=== PATIENT | female | born 1960 | race Caucasian/White ===

== ENCOUNTER 2020-02-11 20:00 | Emergency (ER) | payer OTHER, SELFPAY ==
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
[2020-02-11 20:05] VITALS: BP 155/103; PULSE 89; RESP 18; TEMP 36.4; O2SAT 98
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
[2020-02-11] MEDS: CYCLOBENZAPRINE HCL 10 MG TABLET PO (21:45)
== END 2020-02-11 22:20 | disposition home or self-care (01) ==
PROVIDERS: Emergency Provider Emergency Medicine; PCP Nurse Practitioner Family
DX: S40.022A Contusion of left upper arm, initial encounter (principal); S60.222A Contusion of left hand, initial encounter; S13.9XXA Sprain of joints and ligaments of unspecified parts of neck, initial encounter; V89.2XXA Person injured in unspecified motor-vehicle accident, traffic, initial encounter
CPT/HCPCS: 72040; 73090; 73120; 73620; 99283; 99284; A9270